=== PATIENT | female | born 1985 | race Hispanic/Latino ===

== ENCOUNTER → 2016-10-27 | Outpatient (CLI) | payer OTHER ==
[~2016-10-27] MED LIST: FERR-74 PO; IBUP-1773 PO
== END ==
LOC: LAB 07:18
PROVIDERS: ATTEND Family Medicine
DX: O99.810 Abnormal glucose complicating pregnancy (principal)
CPT/HCPCS: 36415; 82951; 82952; 82962

== ENCOUNTER 2017-02-03 02:42 | Inpatient (IN) | payer OTHER ==
[~2017-02-03] VITALS: Ht 162.6 cm; Wt 60.8 kg
[2017-02-03] VITALS (22 sets, daily range): BP systolic 79–113; BP diastolic 42–72
[2017-02-03] MEDS ORDERED: D5 LR IV SOLUTION 1,000 ML IV ONE (04:10)
[2017-02-03] MEDS: D5 LR IV SOLUTION 1,000 ML IV SCH ×2 (04:30→11:10)
[2017-02-03] MEDS ORDERED: MINERAL OIL CONCENTRATE 99.9% 15 ML UDC TOP PRN (04:30)
[2017-02-03 04:59] LABS: BASOPHILS % (AUTO) 0 % (0-10); EOSINOPHILS % (AUTO) 0 % (0-10); LYMPHOCYTES # (AUTO) 1.8 X 10^3 (1.0-4.0); LYMPHOCYTES % (AUTO) 21 % (12-44); MEAN CORPUSCULAR HEMOGLOBIN 28 PG (25-34); MEAN CORPUSCULAR HGB CONC 32 G/DL (32-36); MEAN CORPUSCULAR VOLUME 88 FL (80-99); MEAN PLATELET VOLUME 11.1 FL (7.4-10.4); MONOCYTES # (AUTO) 0.6 X 10^3 (0.0-1.0); MONOCYTES % (AUTO) 7 % (0-12); NEUTROPHILS # (AUTO) 6.2 X 10^3 (1.8-7.8); NEUTROPHILS % (AUTO) 72 % (42-75); PLATELET COUNT 284 10^3/uL (130-400); RED BLOOD COUNT 3.54 10^6/uL (4.35-5.85); RED CELL DISTRIBUTION WIDTH 14.2 % (10.0-14.5); WHITE BLOOD COUNT 8.6 10^3/uL (4.3-11.0)
[2017-02-03] MEDS ORDERED: CATHETER FLUSH 10 ML SYR IV SCH ×2 (06:00→22:00)
[2017-02-03] MEDS ORDERED: OXYTOCIN/NORMAL SALINE 500 ML IV ONE (09:55)
[2017-02-03] MEDS ORDERED: OXYTOCIN/NORMAL SALINE 500 ML IV SCH ×2 (12:22→14:21)
--- NOTE | 2017-02-03 13:33 | History & Physical-OB ---
OB - Chief Complaint & HPI Date Date of Admission: Date of Admission: Feb 03, 2017 at 04:45 Chief Complaint/History OB-Reason for Admission/Chief: Onset of Labor Hx : 6 Hx Para: 4 Expected Date of Delivery: Feb 04, 2017 Gestational Age in Weeks: 39 Allergies and Home Medications Allergies Coded Allergies: No Known Drug Allergies (Unverified , 02/03/17) Home Medications No Active Prescriptions or Reported Meds OB - History Hx of Present Care: Yes Ultrasounds: Normal mid trimester US Obstetrical Complications: None Medical Complications: None Obstetrical History Hx : 6 Hx Para: 4 Hx Total # of Abortions (Spona: 1 Patient Past Medical History None Social History/Family History HIV/AIDS: No Recent Infectious Disease Expo: No Sexually Transmitted Disease: No Alcohol Use: Denies Use Recreational Drug Use: No Smoking Cessation: Never smoker Immunizations Tetanus Booster (TDap): Less than 5yrs (During this ) Rubella: immune RPR/VDRL: Negative GBS Status: Negative HBsAG: Negative OB - Admission Exam Physical Exam Vitals: Vital Signs 02/03/17 02/03/17 07:30 12:30 Temp 98.2 Pulse 113 Resp 18 B/P (MAP) 113/72 O2 Delivery Room Air Heart: Rhythm Normal Lungs: Clear Abdomen: Gravid Extremities: Normal Reflexes: Normal Cervical Dilatation: 6cm (On Admission) Effacement: 75% Station: -2 Membranes: Intact Amniotic Fluid: Clear Heart Rate: 130's Accelerations: Accelerations Present Decelerations: No Decelerations Short Term Variability: Present Contractions on Admission: 6-10 Minutes Apart Date/Time Contractions Began;: 3am Intensity: Moderate Labs Laboratory Tests Test 02/03/17 04:30 Range/Units White Blood Count 8.6 4.3-11.0 10^3/uL Red Blood Count 3.54 L 4.35-5.85 10^6/uL Hemoglobin 9.8 L 11.5-16.0 G/DL Hematocrit 31 L 35-52 % Mean Corpuscular Volume 88 80-99 FL Mean Corpuscular Hemoglobin 28 25-34 PG Mean Corpuscular Hemoglobin Concent 32 32-36 G/DL Red Cell Distribution Width 14.2 10.0-14.5 % Platelet Count 284 130-400 10^3/uL Mean Platelet Volume 11.1 H 7.4-10.4 FL Neutrophils (%) (Auto) 72 42-75 % Lymphocytes (%) (Auto) 21 12-44 % Monocytes (%) (Auto) 7 0-12 % Eosinophils (%) (Auto) 0 0-10 % Basophils (%) (Auto) 0 0-10 % Neutrophils # (Auto) 6.2 1.8-7.8 X 10^3 Lymphocytes # (Auto) 1.8 1.0-4.0 X 10^3 Monocytes # (Auto) 0.6 0.0-1.0 X 10^3 Eosinophils # (Auto) 0.0 0.0-0.3 10^3/uL Basophils # (Auto) 0.0 0.0-0.1 10^3/uL OB - Assessment/Plan/Diagnosis Assessment Assessment: active labor Plan Plan: Expectant Management Other Plan 31 yo @ 39 wga admitted for active labor Plan - AROM - Pitocin augmentation - Expect vaginal delivery - GBS neg in clinic Copy Copies To 1: JASVIR LORENZO MD, HOLLY R MD Feb 03, 2017 13:33
[2017-02-03] MEDS ORDERED: BENZOCAINE/MENTHOL (DERMOPLAST) 56 ML CAN TP PRN (14:30)
[2017-02-03] MEDS ORDERED: WITCH HAZEL(TUCKS) 40 EA JAR TOP PRN (14:30)
--- NOTE | 2017-02-03 15:11 | OB Labor & Delivery Record ---
Vag Delivery Note Vag Delivery Note Date of Delivery: 02/03/17 Preoperative Diagnosis: Aster Vidal is a 31 y/o @ 39wga who presented in active labor Postoperative Diagnosis: Same Surgeon: Palak Guillaume MD Explosives Mixer Operator: Brittany Sanchez MD Anesthesia: None Delivery Type: Spontaneous vaginal delivery Findings: Viable female , apgars and weight pending at time of this note Lacerations: none Intact placenta with 3 vessel cord. No nuchal cord, body cord or shoulder dystocia Estimated Blood Loss: 150 ml Complications: None Condition: Stable Description of Procedure: The patient is a 31 y/o who presented at term for active labor. She was admitted and informed consent was obtained. Her labor course was unremarkable - see OB H&P by Dr. Sanchez. She progressed to 8cm and had the uncontrolled desire to push. She was then set up for delivery. I was called at this time by RN at the request of Dr. Sanchez to come assess as there was concern for pelvic organ prolapse impeding progress. The bladder had been drained. There was some significant anterior prolapse and the patient was 8+cm dilated with the head at -1 station. She had an uncontrolled urge to push and did not want an epidural. The 's head was in the right occiput transverse presentation. I thus instructed her on pushing, taking care to elevate the tissue out of the plane of the head. With good maternal pushing effort, the 's head did start to descend and finally crown after rotation of the occiput to anterior presentation. The infant's head was delivered atraumatically in the occiput anterior position. The shoulders and remainder of the infant's body were then delivered without difficulty. Upon delivery, the head was held below the level of the perineum and the mouth and nares were bulb suctioned. The cord was doubly clamped after a brief pause of 30-60 seconds with the on the maternal abdomen. An intact placenta with 3-vessel cord delivered via Anastasia by Dr. Sanchez and there was found to be minimal bleeding. Vigorous fundal massage was performed and the fundus was found to be firm. IV oxytocin was given. Examination of the vagina and perineum revealed a no lacerations. Sponge and instrument counts were correct. Mom and baby were both in stable condition in the labor suite. Vitals - Labs Vital Signs - I&O Vital Signs Date Time Temp Pulse Resp B/P (MAP) Pulse Ox O2 Delivery O2 Flow Rate FiO2 02/03/17 14:39 81 18 97/52 Room Air 02/03/17 14:25 93 18 101/56 Room Air 02/03/17 14:15 107 18 107/56 Room Air 02/03/17 14:00 99 18 104/62 Room Air 02/03/17 13:45 90 18 102/64 Room Air 02/03/17 13:30 92 18 108/69 Room Air 02/03/17 13:15 86 18 103/62 Room Air 02/03/17 13:00 86 18 106/65 Room Air 02/03/17 12:45 93 18 101/65 Room Air 02/03/17 12:30 113 18 113/72 Room Air 02/03/17 12:00 82 18 100/59 Room Air 02/03/17 11:30 88 18 99/56 Room Air 02/03/17 11:00 18 Room Air 02/03/17 10:30 18 Room Air 02/03/17 10:00 86 18 97/57 Room Air 02/03/17 09:30 18 Room Air 02/03/17 09:00 94 18 98/57 Room Air 02/03/17 08:30 18 Room Air 02/03/17 08:00 88 18 95/56 Room Air 02/03/17 07:30 98.2 74 18 94/57 Room Air 02/03/17 04:52 93 18 91/59 Room Air 02/03/17 03:05 98.8 88 18 102/65 Room Air Labs Laboratory Tests 02/03/17 04:30: White Blood Count 8.6, Red Blood Count 3.54L, Hemoglobin 9.8L, Hematocrit 31L, Mean Corpuscular Volume 88, Mean Corpuscular Hemoglobin 28, Mean Corpuscular Hemoglobin Concent 32, Red Cell Distribution Width 14.2, Platelet Count 284, Mean Platelet Volume 11.1H, Neutrophils (%) (Auto) 72, Lymphocytes (%) (Auto) 21 , Monocytes (%) (Auto) 7, Eosinophils (%) (Auto) 0, Basophils (%) (Auto) 0, Neutrophils # (Auto) 6.2, Lymphocytes # (Auto) 1.8, Monocytes # (Auto) 0.6, Eosinophils # (Auto) 0.0, Basophils # (Auto) 0.0 PALAK GUILLAUME MD Feb 03, 2017 15:11
[2017-02-03] MEDS: IBUPROFEN 600 MG (MOTRIN) TAB PO SCH ×2 (15:17→20:15)
[2017-02-04 02:23] VITALS: BP 89/57
[2017-02-04] MEDS: IBUPROFEN 600 MG (MOTRIN) TAB PO SCH ×3 (02:23→13:16)
[2017-02-04 05:43] VITALS: BP 83/49
[2017-02-04 06:04] LABS: BASOPHILS % (AUTO) 0 % (0-10); EOSINOPHILS % (AUTO) 0 % (0-10); LYMPHOCYTES # (AUTO) 2.5 X 10^3 (1.0-4.0); LYMPHOCYTES % (AUTO) 16 % (12-44); MEAN CORPUSCULAR HEMOGLOBIN 28 PG (25-34); MEAN CORPUSCULAR HGB CONC 32 G/DL (32-36); MEAN CORPUSCULAR VOLUME 88 FL (80-99); MONOCYTES # (AUTO) 1.3 X 10^3 (0.0-1.0); MONOCYTES % (AUTO) 9 % (0-12); NEUTROPHILS # (AUTO) 11.2 X 10^3 (1.8-7.8); NEUTROPHILS % (AUTO) 75 % (42-75); PLATELET COUNT 249 10^3/uL (130-400); RED BLOOD COUNT 3.46 10^6/uL (4.35-5.85); RED CELL DISTRIBUTION WIDTH 14.1 % (10.0-14.5)
[2017-02-04 08:41] VITALS: BP 79/45
[2017-02-04] MEDS ORDERED: IBUP-1773 PO (10:47)
[2017-02-04] MEDS ORDERED: FERR-74 PO (10:47)
--- NOTE | 2017-02-04 10:51 | Discharge Instructions ---
Discharge Inst-Women's Serv Depart Medications New, Converted or Re-Newed RX: Transmitted to Pharmacy New Medications: Ferrous Sulfate (Ferrous Sulfate) 325 Mg Tablet 325 MG PO DAILY, #30 TAB 0 Refills Ibuprofen (Ibuprofen) 600 Mg Tablet 600 MG PO Q6H PRN for pain, #60 TAB 0 Refills Follow Up/Instructions Goal/Follow Up: Follow up in 6 weeks for visit. Activity Activity: Activity as Tolerated (avoid strenuous activity x 2 weeks) Driving Instructions: You May Drive NO SMOKING: NO SMOKING Nothing Inside Vagina: No Douching, No [place], No Tampons Diet Discharge Diet: Regular Diet Symptoms to Report to : Swelling Increased, Bleeding Excessive, Fever Over 101 Degrees F, Pain/Pressure in Chest, Urination Difficulty, Vaginal Bleeding Increase, Cramps in Feet or Legs, Lightheadedness, Vaginal Discharge Foul, Shortness of Breath For Any Problems or Questions: Contact Your Physician Copies To 1: JASVIR LORENZO MD, BETHANY N MD Feb 04, 2017 10:51 am
--- NOTE | 2017-02-04 10:52 | Discharge Summary ---
Diagnosis/Chief Complaint Date of Admission Feb 03, 2017 at 4:45 am Date of Discharge February 04, 2017 Admission Diagnosis Admission Diagnosis 39 week gestation Active labor Discharge Diagnosis Spontaneous vaginal delivery anemia Bladder prolapse Chief Complaint/HPI Chief Complaint/HPI presented to L&D in active labor at 39 weeks gestation. Discharge Summary-Simple/Stand Procedures Spontaneous vaginal delivery Discharge Physical Examination Allergies: Coded Allergies: No Known Drug Allergies (Unverified , 02/03/17) Vitals & I&Os Vital Sign - Last 12Hours Date Time Temp Pulse Resp B/P (MAP) Pulse Ox O2 Delivery O2 Flow Rate FiO2 02/04/17 08:41 96.8 85 18 79/45 97 Room Air Intake and Output 02/04/17 00:00 Intake Total 1400 ml Balance 1400 ml General Appearance: Alert, No Acute Distress Respiratory: Clear to Auscultation, Normal Air Movement Cardiovascular: Regular Rate, No Murmurs Abdominal: Normal Bowel Sounds, No Tenderness Neuro: Normal Gait Psych/Mental Status: Mental Status NL Hospital Course Patient admitted and progressed through labor without complication, at time of pushing noted to have large cystocele requiring manual reduction to prevent injury from head. No complications or complaints, urinating without difficulty. Will need re-evaluation of cystocele outpatient. Labs Laboratory Tests Test 02/03/17 04:30 02/04/17 05:40 Range/Units White Blood Count 8.6 15.0 H 4.3-11.0 10^3/uL Red Blood Count 3.54 L 3.46 L 4.35-5.85 10^6/uL Hemoglobin 9.8 L 9.7 L 11.5-16.0 G/DL Hematocrit 31 L 30 L 35-52 % Mean Corpuscular Volume 88 88 80-99 FL Mean Corpuscular Hemoglobin 28 28 25-34 PG Mean Corpuscular Hemoglobin Concent 32 32 32-36 G/DL Red Cell Distribution Width 14.2 14.1 10.0-14.5 % Platelet Count 284 249 130-400 10^3/uL Mean Platelet Volume 11.1 H 11.0 H 7.4-10.4 FL Neutrophils (%) (Auto) 72 75 42-75 % Lymphocytes (%) (Auto) 21 16 12-44 % Monocytes (%) (Auto) 7 9 0-12 % Eosinophils (%) (Auto) 0 0 0-10 % Basophils (%) (Auto) 0 0 0-10 % Neutrophils # (Auto) 6.2 11.2 H 1.8-7.8 X 10^3 Lymphocytes # (Auto) 1.8 2.5 1.0-4.0 X 10^3 Monocytes # (Auto) 0.6 1.3 H 0.0-1.0 X 10^3 Eosinophils # (Auto) 0.0 0.0 0.0-0.3 10^3/uL Basophils # (Auto) 0.0 0.0 0.0-0.1 10^3/uL Discharge Instructions to patient/family Please see electonic discharge instructions given to patient. Discharge Medications Reviewed and agree with Discharge Medication list on patient's Discharge Instruction sheet Clinical Quality Measures DVT/VTE Risk/Contraindication: Risk Factor Score Per Nursin RFS Level Per Nursing on Admit: 1=Low/No VTE PPX Copy Copies To 1: JASVIR LORENZO MD, BETHANY N MD Feb 04, 2017 10:52 am
[2017-02-04 16:40] VITALS: BP 79/45
== END 2017-02-04 16:40 | disposition home or self-care (01) | DRG 775 ==
LOC: WSo 02:42 → LDRP 02:44 → WSo 04:45 → LDRP 15:16 → ENPENDDIS 02-04 15:00
PROVIDERS: ADMIT Family Medicine; ATTEND Family Medicine
PROC: 10E0XZZ Delivery of Products of Conception, External Approach (ICD-10-PCS; principal; 2017-02-03)
DX: O34.83 Maternal care for other abnormalities of pelvic organs, third trimester (principal); Z37.0 Single live birth; Z3A.39 39 weeks gestation of pregnancy
CPT/HCPCS: 36415; 85025; 86850; 86900; 86901; 99212

== ENCOUNTER 2023-09-02 11:40 | Observation (INO) | payer OTHER ==
[~2023-09-02 11:40] MED LIST changes: -FERR-74 PO; +FERR325T18 PO
[2023-09-02 12:53] LABS: BASOPHILS % (AUTO) 0 % (0-10); EOSINOPHILS % (AUTO) 0 % (0-10); HEMATOCRIT 41 % (35-52); LYMPHOCYTES # (AUTO) 1.8 10^3/uL (1.0-4.0); LYMPHOCYTES % (AUTO) 22 % (12-44); MEAN CORPUSCULAR HEMOGLOBIN 32 pg (25-34); MEAN CORPUSCULAR HGB CONC 34 g/dL (32-36); MEAN CORPUSCULAR VOLUME 93 fL (80-99); MEAN PLATELET VOLUME 10.5 fL (9.0-12.2); MONOCYTES # (AUTO) 0.6 10^3/uL (0.0-1.0); MONOCYTES % (AUTO) 7 % (0-12); NEUTROPHILS # (AUTO) 5.9 10^3/uL (1.8-7.8); NEUTROPHILS % (AUTO) 70 % (42-75); PLATELET COUNT 212 10^3/uL (130-400); WHITE BLOOD COUNT 8.4 10^3/uL (4.3-11.0)
[2023-09-02] MEDS ORDERED: NS IV 1000 ML 1,000 ML IV SCH (13:30)
--- NOTE | 2023-09-02 13:40 | History & Physical-OB/GYN ---
History of Present Illness History of Present Illness Reason for visit/HPI This 37-year-old G8, P3 presents to labor and delivery after being seen at [facility] for an OB intake. She had an ultrasound which showed an abnormal with no gestational sac and no pole and looked very much like a molar . hCG today is 1173. Patient states via the salon shampoo assistant that she has had some bleeding but denies heavy bleeding. We discussed different options and at this time I believe that we should proceed to suction D&C secondary to complete molar . Via the salon shampoo assistant we discussed the risk benefits and alternatives including the risks of infection, bleeding, injury to the uterus, perforation, injury to pelvic and abdominal organs, VTE, nerve and limb damage and anesthesia risks. We discussed the benefits of removing the abnormal placental tissue and sending it to pathology for further analysis. Via the salon shampoo assistant the patient verbalized understanding had all of her questions answered to her satisfaction signed consents. Pt's HCG came back and was 1173 and via the salon shampoo assistant I explained that she may be miscarrying or it may be a molar or is may be normal. We discussed practicing watchful waiting at this time and repeat the US in 1 week. Pt was agreeable. Date of Admission Sep 02, 2023 at 11:40 Date Seen by a Provider: Sep 02, 2023 Time Seen by a Provider: 13:00 I consulted on this patient on 09/02/23 13:36 Attending Physician Jasvir Sanchez MD Admitting Physician Admitting Physician: Jasvir Sanchez MD Attending Physician: Jasvir Sanchez MD Consult Mulu Rudd DO Allergies and Home Medications Allergies Coded Allergies: No Known Drug Allergies (Unverified , 02/03/17) Patient Home Medication List Home Medication List Reviewed: Yes Ferrous Sulfate (Ferrous Sulfate) 325 Mg Tablet, 325 MG PO DAILY Prescribed by: SAMMY ARAYA on 02/04/17 1047 Last Action: Reviewed Discontinued Medications Ibuprofen (Ibuprofen) 600 Mg Tablet, 600 MG PO Q6H PRN for pain Discontinued Reason: No Longer Taking Prescribed by: SAMMY ARAYA on 02/04/17 1047 Last Action: Reviewed Past Yxqehic-Ifrltp-Hfzuxn Hx Patient Social History Marrital Status: Employed/Student: employed Smoking Status: Never a Smoker Recent Hopitalizations: No Immunizations Up To Date Tetanus Booster (TDap): Less than 5yrs Seasonal Allergies Seasonal Allergies: No Surgeries Yes Appendectomy Respiratory No Cardiovascular No Neurological No Reproductive System : Yes Hx : 7 Hx Para: 5 Sexually Transmitted Disease: No HIV/AIDS: No Genitourinary No Gastrointestinal No Musculoskeletal No Endocrine History of Endocrine Disorders: No HEENT History of HEENT Disorders: No Cancer No Psychosocial History of Psychiatric Problem: No Integumentary History of Skin or Integumenta: No Blood Transfusions History of Blood Disorders: No Family Medical History Family Hx: Diabetes mellitus 19 FATHER 19 MOTHER Review of Systems Constitutional: see HPI EENTM: see HPI Respiratory: see HPI Cardiovascular: see HPI Gastrointestinal: see HPI Genitourinary: see HPI Musculoskeletal: see HPI Skin: see HPI Psychiatric/Neurological: No Symptoms Reported, See HPI Physical Exam Physical Exam Vital Signs Capillary Refill : Labs Laboratory Tests 09/02/23 12:42: White Blood Count 8.4, Red Blood Count 4.45, Hemoglobin 14.0, Hematocrit 41, Mean Corpuscular Volume 93, Mean Corpuscular Hemoglobin 32, Mean Corpuscular Hemoglobin Concent 34, Red Cell Distribution Width 12.2, Platelet Count 212, Mean Platelet Volume 10.5, Immature Granulocyte % (Auto) 0, Neutrophils (%) (Auto) 70, Lymphocytes (%) (Auto) 22, Monocytes (%) (Auto) 7, Eosinophils (%) (Auto) 0, Basophils (%) (Auto) 0, Neutrophils # (Auto) 5.9, Lymphocytes # (Auto) 1.8, Monocytes # (Auto) 0.6, Eosinophils # (Auto) 0.0, Basophils # (Auto) 0.0, Immature Granulocyte # (Auto) 0.0, Human Chorionic Gonadotropin, Quant 1173H General Appearance: No Apparent Distress, WD/WN Respiratory: Chest Non Tender, Lungs Clear, Normal Breath Sounds Cardiovascular: Regular Rate, Rhythm, No Edema Abdominal: normal bowel sounds, non tender, soft Gynecology/General: No lesions Labia: WNL Vagina: WNL Cervix: WNL Uterus: WNL, Enlarged (Consistent with ) Pelvic Exam: normal external exam Extremity: Normal Inspection Assessment/Plan Assessment and Plan early possible Molar DC to home f/u in 1 week SAB precautions Admission Diagnosis Admission Status: Observation Copy Copies To 1: JASVIR SANCHEZ MD, VICTORIA A DO Sep 02, 2023 13:40
[2023-09-02] MEDS ORDERED: LACTATED RINGERS 1,000 ML 1,000 ML IV PRN (14:00)
== END 2023-09-02 14:45 | disposition home or self-care (01) ==
LOC: UNDOADMOB 11:40 → WS 11:40 → UNDODISOB 14:45
PROVIDERS: ADMIT Family Medicine; ATTEND Obstetrics & Gynecology
DX: O02.0 Blighted ovum and nonhydatidiform mole (principal)
CPT/HCPCS: 84702; 85025; 86850; 86900; 86901; 96360; G0378; G0379; 36415

== ENCOUNTER 2023-09-09 09:18 | Outpatient (CLI) | payer OTHER ==
[~2023-09-09] VITALS: Ht 152.4 cm; Wt 54.5 kg
[2023-09-10] MEDS ORDERED: IBUP-1773 PO (13:53)
== END 2023-09-09 11:50 | disposition home or self-care (01) ==
LOC: PREOP 09:18
PROVIDERS: ATTEND Obstetrics & Gynecology
DX: Z01.818 Encounter for other preprocedural examination (principal)

== ENCOUNTER 2023-09-10 12:55 | Day surgery (SDC) | payer OTHER ==
[~2023-09-10] VITALS: Ht 152.4 cm; Wt 54.5 kg
[2023-09-10] VITALS (11 sets, daily range): BP systolic 100–112; BP diastolic 57–69
[2023-09-10] MEDS ORDERED: METHYLERGONOVINE INJ 0.2 MG/ML AMP IM ONE (12:56)
[2023-09-10] MEDS ORDERED: fentaNYL INJECTION 100 MCG/2 ML VIAL ONE (13:42)
[2023-09-10] MEDS ORDERED: proPOfol INJECTION 200 MG/20 ML VIAL IV ONE (13:42)
[2023-09-10] MEDS ORDERED: MIDAZOLAM INJ 2 MG/2 ML VIAL ONE (13:42)
--- NOTE | 2023-09-10 13:51 | Progress Note-Pre Operative ---
Pre-Operative Progress Note Date of Available H&P: Sep 02, 2023 Date H&P Reviewed: Sep 10, 2023 Time H&P Reviewed: 13:00 History & Physical: H&P Reviewed, Changes noted below Changes from last HP Patient was seen and a repeat HCG and US were performed. The HCG had decreased but on US there was still increased vascularity. We discussed with pt via the clinical specialist and will proceed to suction D&C We discussed risks and benefits in detail and pt verbalized understanding, signed consents and is ready to proceed. Pre-Operative Diagnosis: missed AB Plan: suction D&C SHAYLEE PEACE DO Sep 10, 2023 13:51
--- NOTE | 2023-09-10 13:52 | OB/GYN Operative Report ---
Operative Report Date of Procedure:Sep 10, 2023 Preoperative Diagnosis: missed AB Postoperative Diagnosis: Same Name of the Procedure: Suction D&C Surgeon: Shaylee Peace Pompom Maker(s): [none] Anesthesia: General LMA Indications for Procedure: decreased HCG and increased vasularity on US but no pole. Findings of the Procedure: Products of conception Complications: None Disposition:Counts correct x2 patient taken to recovery room in stable condition Description of the Procedure: Informed consent was obtained and signed patient was taken to or [place]. 3 placed under general LMA anesthesia placed in the dorsolithotomy position prepped and draped usual sterile fashion. A timeout was performed. A pelvic exam under anesthesia revealed a slightly enlarged midline uterus no adnexal masses. A weighted speculum was placed into the posterior vaginal vault and single-tooth tenaculum was used to grasp anterior lip of the cervix. The cervical os was dilated to allow passage of a 7 [place] curved suction catheter. Suction catheter was then inserted into the uterine cavity and suction was applied. The products of conception were removed from the uterine cavity after 4 passes of the 7 [place]ian curved suction catheter. A blunt curette was used to feel the edges of the uterine cavity and no products of conception were seen. The single-tooth and weighted speculum were removed and Methergine 0.2 mg IM was given x1. The uterus was also massaged to allow it to help contract down to decrease bleeding. The patient tolerated the procedure well and was taken to recovery room in stable condition. All counts were correct x2. The estimated blood loss was 300 cc, fluid 700 cc and urine output 250 cc. SHAYLEE PEACE DO Sep 10, 2023 13:52
[2023-09-10] MEDS ORDERED: IBUP-1773 PO (13:53)
--- NOTE | 2023-09-10 13:54 | Discharge Inst-Simple/Standard ---
Discharge Inst-Standard Reconcile Patient Problems Problems Reviewed?: Yes Discharge Medications New, Converted or Re-Newed RX: Transmitted to Pharmacy Patient Instructions/Follow Up Plan of Care/Instructions/FU: f/u in 2 wk Nothing in the vagina (no sex, tampons, douches) Call if increase pain, bleeding or temperature 101F or higher Activity as Tolerated: Yes Discharge Diet: Regular Diet Copy Copies To 1: JASVIR LORENZO MD, VICTORIA A DO Sep 10, 2023 13:54
[2023-09-10] MEDS ORDERED: SEVOFLURANE (ULTANE) 15 ML INHAL SOLN ONE (14:39)
[2023-09-10] MEDS ORDERED: ONDANSETRON INJECTION 4 MG/2 ML (SDV) ONE (14:39)
[2023-09-10] MEDS ORDERED: dexAMETHasone INJ 10 MG/ML 1 ML VIAL ONE (14:39)
[2023-09-10] MEDS ORDERED: LIDOCAINE PF 2% 5 ML VIAL ONE (14:39)
[2023-09-10] MEDS ORDERED: LACTATED RINGERS 1,000 ML 1,000 ML IV PRN (14:45)
--- NOTE | 2023-09-10 14:50 | Anesthesia-General Post-Op ---
General Patient Condition Mental Status/LOC: Same as Preop Cardiovascular: Satisfactory Nausea/Vomiting: Absent Respiratory: Satisfactory Pain: Controlled Complications: Absent Post Op Complications Complications None Follow Up Care/Instructions Patient Instructions None needed. Anesthesia/Patient Condition Patient Condition Patient is doing well, no complaints, stable vital signs, no apparent adverse anesthesia problems. No complications reported per nursing. JENA MAGANA CRNA Sep 10, 2023 14:50
[2023-09-10] MEDS ORDERED: ONDANSETRON INJECTION 4 MG/2 ML (SDV) IVP PRN ×2 (15:00)
[2023-09-10] MEDS ORDERED: morphine INJ 10 MG/ML 1ML (SYR OR VIAL) IVP ONE (15:00)
[2023-09-10] MEDS ORDERED: fentaNYL INJECTION 100 MCG/2 ML VIAL IVP ONE ×2 (15:00)
[2023-09-10] MEDS ORDERED: IBUPROFEN 600 MG TABLET PO ONE (16:15)
== END 2023-09-10 16:55 | disposition home or self-care (01) ==
LOC: SDC 12:55
PROVIDERS: ATTEND Obstetrics & Gynecology
DX: O02.1 Missed abortion (principal)
CPT/HCPCS: 87081